=== PATIENT | female | born 1955 | race American Indian/Alaskan Native ===

== ENCOUNTER 2017-10-09 14:42 | Outpatient (CLI) | payer BC ==
--- NOTE | 2017-10-09 16:35 | XRay Report ---
XRAY RIGHT RIBS 2 VIEWS: 10/09/17 14:42:00 CLINICAL: Right rib pain. FINDINGS: No rib fracture or rib lesion. The lungs are normally expanded. No pneumothorax. Normal heart and pulmonary vasculature. Moderate degenerative change in the thoracic spine. IMPRESSION: Negative for rib fracture or rib lesion.
== END 2017-10-09 14:43 | disposition home or self-care (01) ==
LOC: SPVIMAG 14:42
PROVIDERS: ATTEND Internal Medicine
DX: R07.81 Pleurodynia (principal); M47.894 Other spondylosis, thoracic region

== ENCOUNTER 2017-11-08 14:04 | Outpatient (CLI) | payer BC ==
--- NOTE | 2017-11-08 16:14 | Mammography Report ---
BONE DENSITY STUDY: Breast cancer; osteoporosis screening. DEFINITIONS: BMD = Bone Mineral Density T-score = BMD related to mean peak bone mass of young adult (mean expressed in Standard Deviation) Z-score = Age matched BMD expressed in SD World Health Organization (WHO) Diagnostic Criteria Normal T-score > -1 SD Osteopenia T-score between -1 and -2.4 SD Osteoporosis T-score -2.5 SD or below FINDINGS: The weighted average BMD of lumbar spine L1-L4 is 0.977 with a T-score of -0.6. The weighted average BMD of the left hip is 1.088 with a T-score of 1.2. IMPRESSION: The patient's average T-score is diagnostic for normal bone density and low relative risk for fracture. NOTE: BMD is not the only risk factor for fracture; also consider factors such as the patient's age, risk of falling, previous osteoporotic fracture, family history of osteoporotic fractures, current smoker, and low body weight. [place]'s triangle is a region of interest in femur, predominantly of trabecular bone. It is not a true anatomic site, and [facility] does not recommend its use clinically.
== END 2017-11-08 14:05 | disposition home or self-care (01) ==
LOC: MAMMO 14:04
PROVIDERS: ATTEND Internal Medicine Hematology & Oncology
DX: Z13.820 Encounter for screening for osteoporosis (principal); C50.811 Malignant neoplasm of overlapping sites of right female breast; Z79.811 Long term (current) use of aromatase inhibitors
CPT/HCPCS: 77080